=== PATIENT | male | born 1990 | race American Indian/Alaskan Native ===

== ENCOUNTER 2020-08-20 09:53 | Outpatient (CLI) | payer OTHER ==
--- NOTE | 2020-08-20 12:47 | Cat Scan Report ---
CT upper extrem RT wo con INDICATION: RIGHT ARM PAIN. TECHNIQUE: All CT scans at this location are performed using the following dose modulation technique: Automated exposure control. COMPARISON: Right humerus radiographs 11/24/2019. No recent prior studies. FINDINGS: There is remodeling at the healed distal right humeral diaphyseal fracture. No acute fracture is seen . No intrinsic osseous lesions are identified. Right arm musculature is unremarkable. No significant subcutaneous edema. No soft tissue fluid collec tions are identified. No joint effusion is seen at the right elbow. IMPRESSION: 1. Healed right humeral diaphyseal fracture. 2. No acute osseous or soft tissue findings. Signer Name: Herbert Hernandez MD Signed: 08/20/2020 12:42 PM Workstation Name: [id number]
== END 2020-08-20 09:54 | disposition home or self-care (01) ==
LOC: CT 09:53
PROVIDERS: ATTEND Specialist
DX: M79.601 Pain in right arm (principal)